=== PATIENT | male | born 1945 | race Caucasian/White ===

== ENCOUNTER → 2020-11-30 | Outpatient (CLI) | payer OTHER ==
--- NOTE | 2020-11-30 13:52 | CT ---
EXAMINATION TYPE: CT abdomen pelvis wo con DATE OF EXAM: 11/30/2020 COMPARISON: None HISTORY: Right sided flank pain with difficulty urinating. CT DLP: 988.4 mGycm Examination of the solid and hollow viscera is limited given the lack of contrast. FINDINGS: LUNG BASES: No evidence for nodule. No evidence for infiltrate. LIVER/GB: The gallbladder is unremarkable. No space-occupying hepatic lesion. PANCREAS: No pancreatic mass identified. No inflammatory process seen. SPLEEN: No evidence for splenomegaly. No intrasplenic lesions seen. ADRENALS: No adrenal nodules identified. No evidence for thickening. KIDNEYS: No evidence for renal mass. No nephrolithiasis. No hydronephrosis. BOWEL: Appendix has a normal appearance. No evidence of bowel obstruction. No inflammatory process. Lymph nodes: No evidence for adenopathy greater than 1 cm. Abdominal aorta: Atheromatous changes seen. No evidence for aneurysm. Genital organs: No significant abnormality. Other: No significant abnormality. IMPRESSION: NO EVIDENCE FOR NEPHROLITHIASIS.
== END | disposition home or self-care (01) ==
LOC: RADCTMAIN 12:54
PROVIDERS: ATTEND Nurse Practitioner Acute Care
DX: R10.9 Unspecified abdominal pain (principal)
CPT/HCPCS: 74176

== ENCOUNTER 2020-12-18 07:19 | Day surgery (SDC) | payer OTHER ==
[2020-12-17 11:23] VITALS: BMI 33.7
[~2020-12-18 07:19] MED LIST: LACTATED RINGERS 1,000 ML IV SCH; LIDOCAINE 1% (10MG/ML) FOR IV START INTRADERMA PRN
[2020-12-18] MEDS ORDERED: LACTATED RINGERS 1,000 ML IV ONE (07:43)
[2020-12-18 07:54] LABS: Glucose,Whole Blood 112 mg/dL (75-99)
[2020-12-18 07:58] VITALS: TEMP 97.8
[2020-12-18] MEDS ORDERED: PROPOFOL 10 MG/ML 20 ML VIAL IV ONE (08:22)
--- NOTE | 2020-12-18 08:52 | P.PCN ---
Date of Procedure: 12/18/20 Description of Procedure: BRIEF HISTORY: Patient is a 75-year-old male presenting for outpatient colonoscopy for diverticulosis, history of colon polyps. The patient's last colonoscopy approximately 5 years ago. He has known history of diverticulosis. He is had polypectomy in the past. He denies any change in bowel habits or family history of colon cancer. PROCEDURE PERFORMED: Colonoscopy with polypectomy . PREOPERATIVE DIAGNOSIS: Diverticulosis, history of colon polyps, last colonoscopy 5 years ago. ESTIMATED BLOOD LOSS: Minimal. IV sedation per Anesthesia. PROCEDURE: After informed consent was obtained, the patient, was brought into the endoscopy unit. IV sedation was administered by Anesthesia under continuous monitoring. Digital rectal examination was normal. Initially the Olympus CF-190 flexible video colonoscope was then inserted in the rectum, gradually advanced into the cecum without any difficulty. Careful examination was performed as the scope was gradually being withdrawn. Ileocecal valve and the appendiceal orifice were visualized and appeared normal. Prep was excellent. Mucosa of the cecum, ascending colon, transverse colon, descending colon, sigmoid colon, and rectum appeared normal, With a few scattered diverticula noted in the left colon. 2 diminutive polyps measuring 1-2 mm in size removed with cold forcep polypectomy from the hepatic flexure and transverse colon. Retroflexion was performed in the rectum and no lesions were seen, Low-grade internal hemorrhoids noted. The patient tolerated the procedure well. IMPRESSION: 2 diminutive polyps removed from the hepatic flexure and transverse colon with cold forcep polypectomy. Moderate left colonic diverticulosis. Internal hemorrhoids. RECOMMENDATIONS: Findings of this examination were discussed with the patient and his family. Okay to resume diet. Okay to resume medications. Await pathology from polypectomy. Recommend repeat colonoscopy in 5 years for history of colon polyps pending pathology from polypectomy and if the patient is medically stable at that time and amenable.
[2020-12-18 08:53] VITALS: RESP 16
[2020-12-18 09:11] VITALS: BP 150/84; PULSE 55
== END 2020-12-18 09:20 | disposition home or self-care (01) ==
LOC: ORWHC2ENDO 07:19
PROVIDERS: ATTEND Internal Medicine
DX: Z12.11 Encounter for screening for malignant neoplasm of colon (principal); Z86.010 Personal history of colon polyps; K57.90 Diverticulosis of intestine, part unspecified, without perforation or abscess without bleeding; G47.33 Obstructive sleep apnea (adult) (pediatric); I10 Essential (primary) hypertension; E11.9 Type 2 diabetes mellitus without complications; G25.0 Essential tremor; K21.9 Gastro-esophageal reflux disease without esophagitis; Z79.899 Other long term (current) drug therapy; Z88.8 Allergy status to other drugs, medicaments and biological substances
CPT/HCPCS: 88305; 45380; J2704

== ENCOUNTER → 2021-02-27 | Outpatient (CLI) | payer OTHER, MEDICARE ==
[2021-02-27 14:50] LABS: HCT 46.2 % (39.0-53.0); MCH 34.7 pg (25.0-35.0); MCHC 34.6 g/dL (31.0-37.0); MCV 100.3 fL (80.0-100.0); Macrocytosis Slight; Mean Platelet Volume 7.6; Platelet Count 267 k/uL (150-450); RDW 13.9 % (11.5-15.5); WBC 7.1 k/uL (3.8-10.6)
[2021-02-27 14:59] LABS: African American GFR (CKD) >90 (>60 ml/min/1.73 sqM); Anion Gap 10 mmol/L; Blood Urea Nitrogen 17 mg/dL (9-20); Carbon Dioxide 26 mmol/L (22-30); Chloride 98 mmol/L (98-107); Non-African American GFR(CKD) 88 (>60 ml/min/1.73 sqM); Potassium 3.9 mmol/L (3.5-5.1); Sodium 134 mmol/L (137-145)
== END | disposition home or self-care (01) ==
LOC: LABPAT 14:32
PROVIDERS: ATTEND Internal Medicine
DX: Z01.812 Encounter for preprocedural laboratory examination (principal); R94.39 Abnormal result of other cardiovascular function study
CPT/HCPCS: 36415; 80051; 82565; 84520; 85027

== ENCOUNTER 2021-03-08 10:40 | Day surgery (SDC) | payer MEDICARE, OTHER ==
[2021-03-05 11:49] VITALS: BMI 34.4
[~2021-03-08 10:40] MED LIST changes: +ALPRAZolam 0.25 MG TAB PO PRN; +ALPRAZolam 0.5 MG TAB PO PRN; +ASPIRIN 325 MG TAB PO STA; +ATORVASTATIN 80 MG TAB PO STA; -LACTATED RINGERS 1,000 ML IV SCH; -LIDOCAINE 1% (10MG/ML) FOR IV START INTRADERMA PRN; +NITROGLYCERIN SL TABS 0.4 MG TAB SUBLINGUAL PRN; +SODIUM CHLORIDE 0.9% 1,000 ML in EMPTY BAG 1 BAG IV ONE
[2021-03-08] MEDS ORDERED: SODIUM CHLORIDE 0.9% 1,000 ML IV ONE (11:15)
[2021-03-08 11:32] VITALS: RESP 16; TEMP 98.3
[2021-03-08] MEDS ORDERED: MIDAZOLAM 2 MG/2 ML VIAL IV ONE (12:37)
[2021-03-08] MEDS ORDERED: fentaNYL (PF) 50 MCG/ML 2 ML AMP IV ONE (12:38)
[2021-03-08] MEDS ORDERED: LIDOCAINE 1% INJ 10MG/ML (20 ML MDV) SQ ONE (12:39)
[2021-03-08] MEDS ORDERED: VERAPAMIL SYRINGE (5 MG/10 ML) INTRAARTER ONE (12:43)
[2021-03-08] MEDS ORDERED: HEPARIN SODIUM 1,000 UN/ML (10ML VL) IV ONE (12:43)
[2021-03-08] MEDS ORDERED: IOPAMIDOL-370 125ML BTL INJ ONE (12:58)
--- NOTE | 2021-03-08 13:05 | P.CARDCATH ---
Description of Procedure: PROCEDURES PERFORMED: Left heart catheterization, bilateral coronary angiography INDICATION: abnormal stress test HISTORY: patient is a pleasant 75-year-old male with history of hypertension, hyperlipidemia, strong family history of coronary artery disease who has been having increased episodes of fatigue and some shortness breath over past year. He denies any specific chest pain or pressure. He did undergo stress test with Lexiscan which showed reversible inferior perfusion defect concerning for ischemia. CONSENT:I have discussed the risks, benefits and alternative therapies for the above-mentioned procedure and for both sedation/analgesia as well as necessary blood product administration, if indicated, as they pertain to this patient. The patient has indicated understanding and acceptance of the risks and procedures discussed. PROCEDURE: After the risks, benefits and alternatives of the above mentioned procedure explained in detail with the patient, informed consent was obtained. Patient was taken to the catheterization lab and prepped and draped in usual fashion. 1% lidocaine was used to anesthetize the right radial artery. A 6- [place]an sheath was placed in the right radial artery using modified Seldinger technique. Left coronary angiography was performed with a 5-[place]an JL 3.5 catheter and right coronary angiography was performed with a 5-[place]ritrean AR2 catheter in various views. A 5-Eritrean FR5 catheter was inserted into the left ventricle and pressure measurements were obtained. The right radial sheath was removed and a TR band was placed with hemostasis achieved. The patient tolerated the procedure well. Patient was transported back to the post catheterization holding area in stable condition. Conscious Sedation: Patient was monitored under the direct supervision of vision of myself for conscious sedation using Versed and fentanyl for a total duration of 17 minutes HEMODYNAMICS: Ao: 132/75 LV: 135/ 4, LVEDP 32 SELECTIVE CORONARY ARTERIOGRAPHY: LEFT MAIN: The left main is a large caliber vessel which bifurcates into the LAD and circumflex. There is no significant stenosis. LEFT ANTERIOR DESCENDING CORONARY ARTERY: LAD is a large caliber vessel which wraps around to the apex. There are mild luminal irregularities of the LAD. LEFT CIRCUMFLEX CORONARY ARTERY: Left circumflex is a moderate caliber vessel without significant stenosis. RIGHT CORONARY ARTERY: The right coronary artery is a large caliber vessel which gives off a PDA and PLV branch and is the dominant vessel. There is mild proximal RCA 20-30% stenosis and otherwise normal. FINAL IMPRESSION: 1. Mild CAD as described above 2. Elevated left sided filling pressures PLAN: 1. Aggressive risk factor modification per most recent ACC/AHA guidelines. 2. Follow-up in the office in 1-2 weeks.
[2021-03-08 16:02] LABS: Glucose,Whole Blood 136 mg/dL (75-99)
[2021-03-08 16:36] VITALS: BP 163/75; PULSE 83
== END 2021-03-08 16:20 | disposition home or self-care (01) ==
LOC: CATHCVL 10:40
PROVIDERS: ATTEND Internal Medicine
DX: I25.10 Atherosclerotic heart disease of native coronary artery without angina pectoris (principal); I10 Essential (primary) hypertension; E11.40 Type 2 diabetes mellitus with diabetic neuropathy, unspecified; E78.5 Hyperlipidemia, unspecified; Z79.899 Other long term (current) drug therapy
CPT/HCPCS: 93458; C1894; J2250; J2001; J3010; J1644; Q9967

== ENCOUNTER 2022-02-06 05:46 | Inpatient (IN) | payer OTHER, MEDICARE ==
[2022-02-06] MEDS ORDERED: SODIUM CHLORIDE 0.9% 1,000 ML IV STA (06:06)
[2022-02-06] MEDS ORDERED: ACETAMINOPHEN TAB 500 MG TAB PO STA (06:07)
--- NOTE | 2022-02-06 06:54 | XR ---
EXAMINATION TYPE: XR chest 2V DATE OF EXAM: 02/06/2022 COMPARISON: 04/05/2014 HISTORY: Weakness TECHNIQUE: 2 views FINDINGS: There is no heart failure. There is some mild linear density at the lung bases. Thoracic ao rta is atheromatous. There are chest leads. No pleural effusion. IMPRESSION: There are some mild atelectasis at the lung bases which is increased compared to old exa m. No heart failure seen.
[2022-02-06 06:56] LABS: Basophils # (A) 0.2 k/uL (0-0.2); Basophils % (A) 2 %; Eosinophils % (A) 1 %; HCT 42.4 % (39.0-53.0); HGB 13.7 gm/dL (13.0-17.5); Lymphocytes % (A) 13 %; MCH 31.8 pg (25.0-35.0); MCHC 32.4 g/dL (31.0-37.0); MCV 98.4 fL (80.0-100.0); Mean Platelet Volume 8.1; Monocytes # (A) 0.7 k/uL (0-1.0); Monocytes % (A) 9 %; Neutrophils # (A) 5.8 k/uL (1.3-7.7); Neutrophils % (A) 74 %; Platelet Count 190 k/uL (150-450); RBC 4.31 m/uL (4.30-5.90); RDW 13.8 % (11.5-15.5); WBC 7.9 k/uL (3.8-10.6)
[2022-02-06 07:10] LABS: ALT 26 U/L (4-49); AST 33 U/L (17-59); African American GFR (CKD) >90 (>60 ml/min/1.73 sqM); Albumin 3.6 g/dL (3.5-5.0); Alkaline Phosphatase 49 U/L (38-126); Anion Gap 7 mmol/L; Blood Urea Nitrogen 13 mg/dL (9-20); Calcium 7.9 mg/dL (8.4-10.2); Carbon Dioxide 23 mmol/L (22-30); Chloride 107 mmol/L (98-107); Glucose 134 mg/dL (74-99); Magnesium 1.7 mg/dL (1.6-2.3); Non-African American GFR(CKD) 85 (>60 ml/min/1.73 sqM); Potassium 3.5 mmol/L (3.5-5.1); Sodium 137 mmol/L (137-145); Total Bilirubin 0.3 mg/dL (0.2-1.3); Total Protein 6.5 g/dL (6.3-8.2)
[2022-02-06] MEDS ORDERED: IBUPROFEN 600 MG TAB PO STA (07:23)
[2022-02-06] MEDS ORDERED: LIDOCAINE VISCOUS 2% 15 ML CUP MUCOUS MEM ONE (07:23)
[2022-02-06] MEDS ORDERED: ALBUTEROL HFA INHALER INHALATION STA (08:07)
[2022-02-06] MEDS ORDERED: DEXAMETHASONE SOD PHOSPHATE 10 MG/ML 1 ML VIAL IVP STA (08:08)
[2022-02-06] MEDS ORDERED: NALOXONE 0.4 MG/ML 1 ML VIAL IV PRN (08:17)
[2022-02-06] MEDS ORDERED: ACETAMINOPHEN TAB 325 MG TAB PO PRN (08:17)
[2022-02-06] MEDS ORDERED: IBUPROFEN 400 MG TAB PO PRN (08:17)
--- NOTE | 2022-02-06 08:17 | ED ---
General Adult HPI - General Chief complaint: Weakness Stated complaint: Weakness, Low O2 Time Seen by Provider: 02/06/22 06:06 Source: patient, RN notes reviewed Mode of arrival: EMS Limitations: no limitations - History of Present Illness Initial comments: 76-year-old male presents emergency Department with chief complaint of dyspnea, weakness, fever. Patient's found to have 103 fever. Patient states he's had cough, sore throat. Patient states she has not felt well the last couple days. Patient states his has very similar symptoms. Patient does have underlying asthma, diabetes. Patient denies any nausea vomiting diarrhea constipation no dysuria. Patient states that he feels very weak, difficulty ambulating. Patient states there is normally self ambulates at home - Related Data Home Medications Medication Instructions Recorded Confirmed Metoprolol Succinate (ER) [Toprol 100 mg PO BID 03/21/15 03/08/21 Xl] Omeprazole [PriLOSEC] 20 mg PO DAILY 03/21/15 03/08/21 Primidone [Mysoline] 50 mg PO BID 03/21/15 03/08/21 amLODIPine BESYLATE [Norvasc] 10 mg PO QAM 03/21/15 03/08/21 glipiZIDE [Glucotrol] 5 mg PO AC-BRKFST 03/21/15 03/08/21 hydroCHLOROthiazide [Hydrodiuril] 50 mg PO DAILY 03/21/15 03/08/21 Doxycycline [Vibramycin] 100 mg PO BID 12/17/20 03/08/21 Gabapentin 300 mg PO BID 12/17/20 12/17/20 Potassium Chloride [Potassium 10 meq PO DAILY 12/17/20 03/08/21 Chloride ER] Tamsulosin [Flomax] 0.4 mg PO DAILY 12/17/20 03/08/21 Vitamin B-12 (Unknown Dose) 1 tab PO DAILY 12/17/20 03/08/21 Aspirin 81 mg PO DAILY 03/08/21 03/08/21 Fexofenadine HCl 180 mg PO DAILY 03/08/21 03/08/21 Finasteride [Proscar] 5 mg PO DAILY 03/08/21 03/08/21 Pregabalin [Lyrica] 25 mg PO BID 03/08/21 03/08/21 Rosuvastatin Calcium [Crestor] 5 mg PO DAILY 03/08/21 03/08/21 hydrALAZINE HCL 50 mg PO AC-BID 03/08/21 03/08/21 Allergies Allergy/AdvReac Type Severity Reaction Status Date / Time grass pollen-perennial rye, Allergy Dyspnea Verified 03/08/21 11:10 standar [grass poll-perennial rye,std] lisinopril Allergy Swelling Verified 03/08/21 11:10 OF THROAT SUTURE-CAT GUT Allergy Swelling Uncoded 03/08/21 11:10 Review of Systems ROS Statement: Those systems with pertinent positive or pertinent negative responses have been documented in the HPI. ROS Other: All systems not noted in ROS Statement are negative. Past Medical History Past Medical History: Diabetes Mellitus, GERD/Reflux, Hypertension, Sleep Apnea/CPAP/BIPAP Additional Past Medical History / Comment(s): Essential Tremors. CPAP use. History of Any Multi-Drug Resistant Organisms: None Reported Additional Past Surgical History / Comment(s): SKIN GRAFT LEFT INDEX FINGER. Past Anesthesia/Blood Transfusion Reactions: No Reported Reaction Past Psychological History: No Psychological Hx Reported Smoking Status: Never smoker - Past Family History Mother Family Medical History: No Reported History General Exam Limitations: no limitations General appearance: alert, in no apparent distress Head exam: Present: atraumatic, normocephalic, normal inspection Eye exam: Present: normal appearance, PERRL, EOMI. Absent: scleral icterus, conjunctival injection, periorbital swelling ENT exam: Present: mucous membranes moist. Absent: normal exam, normal oropharynx Neck exam: Present: normal inspection, full ROM. Absent: tenderness, meningismus, lymphadenopathy Respiratory exam: Present: decreased breath sounds. Absent: normal lung sounds bilaterally, respiratory distress, wheezes, rales, rhonchi, stridor Cardiovascular Exam: Present: regular rate, normal rhythm, normal heart sounds. Absent: systolic murmur, diastolic murmur, rubs, gallop, clicks GI/Abdominal exam: Present: soft, normal bowel sounds. Absent: distended, tenderness, guarding, rebound, rigid Course Vital Signs 02/06/22 02/06/22 02/06/22 05:56 07:17 08:10 Temperature 103.1 F H 99.5 F Pulse Rate 75 73 Respiratory 18 16 Rate Blood Pressure 143/78 148/69 O2 Sat by Pulse 91 L 91 L 87 L Oximetry Medical Decision Making - Medical Decision Making Chest x-ray shows mild atelectasis type changes. Patient does have 103.1 fever patient is COVID-19 positive. Patient is that 90% on room air baseline, walking was very difficulty with pulse ox 86, ambulated with 2 people assisting him. Patient states he feels very weak. - Lab Data Result diagrams: 02/06/22 06:45 02/06/22 06:45 Lab Results 02/06/22 02/06/22 02/06/22 Range/Units 06:45 06:45 06:45 WBC 7.9 (3.8-10.6) k/uL RBC 4.31 (4.30-5.90) m/uL Hgb 13.7 (13.0-17.5) gm/dL Hct 42.4 (39.0-53.0) % MCV 98.4 (80.0-100.0) fL MCH 31.8 (25.0-35.0) pg MCHC 32.4 (31.0-37.0) g/dL RDW 13.8 (11.5-15.5) % Plt Count 190 (150-450) k/uL MPV 8.1 Neutrophils % 74 % Lymphocytes % 13 % Monocytes % 9 % Eosinophils % 1 % Basophils % 2 % Neutrophils # 5.8 (1.3-7.7) k/uL Lymphocytes # 1.0 (1.0-4.8) k/uL Monocytes # 0.7 (0-1.0) k/uL Eosinophils # 0.0 (0-0.7) k/uL Basophils # 0.2 (0-0.2) k/uL Sodium 137 (137-145) mmol/L Potassium 3.5 (3.5-5.1) mmol/L Chloride 107 (98-107) mmol/L Carbon Dioxide 23 (22-30) mmol/L Anion Gap 7 mmol/L BUN 13 (9-20) mg/dL Creatinine 0.85 (0.66-1.25) mg/dL Est GFR (CKD-EPI)AfAm >90 (>60 ml/min/1.73 sqM) Est GFR (CKD-EPI)NonAf 85 (>60 ml/min/1.73 sqM) Glucose 134 H (74-99) mg/dL Plasma Lactic Acid Juan 1.0 (0.7-2.0) mmol/L Calcium 7.9 L (8.4-10.2) mg/dL Magnesium 1.7 (1.6-2.3) mg/dL Total Bilirubin 0.3 (0.2-1.3) mg/dL AST 33 (17-59) U/L ALT 26 (4-49) U/L Alkaline Phosphatase 49 (38-126) U/L Total Protein 6.5 (6.3-8.2) g/dL Albumin 3.6 (3.5-5.0) g/dL Coronavirus (PCR) (Not Detectd) 02/06/22 Range/Units 06:45 WBC (3.8-10.6) k/uL RBC (4.30-5.90) m/uL Hgb (13.0-17.5) gm/dL Hct (39.0-53.0) % MCV (80.0-100.0) fL MCH (25.0-35.0) pg MCHC (31.0-37.0) g/dL RDW (11.5-15.5) % Plt Count (150-450) k/uL MPV Neutrophils % % Lymphocytes % % Monocytes % % Eosinophils % % Basophils % % Neutrophils # (1.3-7.7) k/uL Lymphocytes # (1.0-4.8) k/uL Monocytes # (0-1.0) k/uL Eosinophils # (0-0.7) k/uL Basophils # (0-0.2) k/uL Sodium (137-145) mmol/L Potassium (3.5-5.1) mmol/L Chloride (98-107) mmol/L Carbon Dioxide (22-30) mmol/L Anion Gap mmol/L BUN (9-20) mg/dL Creatinine (0.66-1.25) mg/dL Est GFR (CKD-EPI)AfAm (>60 ml/min/1.73 sqM) Est GFR (CKD-EPI)NonAf (>60 ml/min/1.73 sqM) Glucose (74-99) mg/dL Plasma Lactic Acid Juan (0.7-2.0) mmol/L Calcium (8.4-10.2) mg/dL Magnesium (1.6-2.3) mg/dL Total Bilirubin (0.2-1.3) mg/dL AST (17-59) U/L ALT (4-49) U/L Alkaline Phosphatase (38-126) U/L Total Protein (6.3-8.2) g/dL Albumin (3.5-5.0) g/dL Coronavirus (PCR) Detected A (Not Detectd) Disposition Clinical Impression: Hypoxia, COVID-19, Weakness Disposition: ADMITTED IP TO THIS [facility] Condition: Poor Referrals: Nonstaff,Physician [Primary Care Provider] - 1-2 days Time of Disposition: 08:15
[2022-02-06] MEDS: SODIUM CHLORIDE 0.9% 1,000 ML IV SCH ×2 (10:08→23:38)
--- NOTE | 2022-02-06 10:10 | P.HPIM ---
History of Present Illness Chief Complaint: Shortness of breath Patient is a 76-year-old male with a past medical history significant for essential hypertension, diabetes mellitus [id number], BPH, peripheral neuropathy, hyperlipidemia and mild coronary disease the presents a hospital complaining of shortness of breath. This apparently began a few days ago and has been progressively getting worse. Patient is not vaccinated against COVID- 19. Serology was completed which was positive for COVID-19. Patient was given one-time dose of dexamethasone in the emergency department. During my evaluation he seems to be very lethargic and weak. He is currently on 2-3 L saturating above 90%. Family member present also at bedside but states she is also not vaccinated as well. Education provided at bedside. Past Medical History Past Medical History: Diabetes Mellitus, GERD/Reflux, Hypertension, Sleep Apnea/CPAP/BIPAP Additional Past Medical History / Comment(s): Essential Tremors. CPAP use. History of Any Multi-Drug Resistant Organisms: None Reported Additional Past Surgical History / Comment(s): SKIN GRAFT LEFT INDEX FINGER. Past Anesthesia/Blood Transfusion Reactions: No Reported Reaction Past Psychological History: No Psychological Hx Reported Smoking Status: Never smoker - Past Family History Mother Family Medical History: No Reported History Medications and Allergies Home Medications Medication Instructions Recorded Confirmed Type Metoprolol Succinate (ER) [Toprol 100 mg PO BID 03/21/15 02/06/22 History Xl] Omeprazole [PriLOSEC] 20 mg PO DAILY 03/21/15 02/06/22 History Primidone [Mysoline] 50 mg PO BID 03/21/15 02/06/22 History amLODIPine BESYLATE [Norvasc] 10 mg PO QAM 03/21/15 02/06/22 History glipiZIDE [Glucotrol] 5 mg PO AC-BRKFST 03/21/15 02/06/22 History Doxycycline [Vibramycin] 100 mg PO BID 12/17/20 02/06/22 History Tamsulosin [Flomax] 0.4 mg PO DAILY 12/17/20 02/06/22 History Fexofenadine HCl 180 mg PO DAILY 03/08/21 02/06/22 History Finasteride [Proscar] 5 mg PO DAILY 03/08/21 02/06/22 History Rosuvastatin Calcium [Crestor] 5 mg PO DAILY 03/08/21 02/06/22 History hydrALAZINE HCL 50 mg PO AC-BID 03/08/21 02/06/22 History Cyanocobalamin (Vitamin B-12) 1,000 mcg PO DAILY 02/06/22 02/06/22 History [Vitamin B-12] Furosemide [Lasix] 20 mg PO DAILY 02/06/22 02/06/22 History Potassium Chloride [Klor-Con M20] 20 meq PO DAILY 02/06/22 02/06/22 History Pregabalin [Lyrica] 50 mg PO BID 02/06/22 02/06/22 History Allergies Allergy/AdvReac Type Severity Reaction Status Date / Time grass pollen-perennial rye, Allergy Dyspnea Verified 02/06/22 08:35 standar [grass poll-perennial rye,std] lisinopril Allergy Swelling Verified 02/06/22 08:35 OF THROAT SUTURE-CAT GUT Allergy Swelling Uncoded 02/06/22 08:35 Physical Exam Vitals: Vital Signs Temp Pulse Resp BP Pulse Ox 02/06/22 08:11 93 L 02/06/22 08:10 87 L 02/06/22 07:17 99.5 F 73 16 148/69 91 L 02/06/22 05:56 103.1 F H 75 18 143/78 91 L Intake and Output 02/05/22 02/06/22 02/06/22 22:59 06:59 14:59 Other: Weight 108.862 kg Gen. patient is awake alert oriented 3 very weak appearing Respiratory rhonchi with some minimal wheezing appreciated Abdomen soft, nontender Cardio normal S1/S2 Neuro patient is awake alert oriented 3 Extremity no pitting edema noted Results CBC & Chem 7: 02/06/22 06:45 02/06/22 06:45 Labs: Abnormal Lab Results - Last 24 Hours (Table) 02/06/22 02/06/22 Range/Units 06:45 06:45 Glucose 134 H (74-99) mg/dL Calcium 7.9 L (8.4-10.2) mg/dL Coronavirus (PCR) Detected A (Not Detectd) Assessment and Plan Assessment: Assessment: #1 acute hypoxic respiratory distress secondary to viral infection. #2 COVID-19 pneumonia #3 essential hypertension #4 hyperlipidemia #5 BPH #6 mild coronary artery disease #7 GERD Plan: -Admit to medicine for close monitoring -Aspiration/fall precaution -Education regarding COVID-19 vaccination provided to patient and family bedside -We'll start patient on dexamethasone 6 mg daily -Continue with breathing treatments when necessary to maintain saturations above 90% -Chest x-ray reviewed DVT prophylaxis PT/OT needs 2 person assist to move. Disposition anticipate discharge in the next 24-72 hours pending hospital course.
[2022-02-06] MEDS: ALBUTEROL HFA INHALER INHALATION SCH ×3 (12:39→20:16)
[2022-02-06] MEDS: LIDOCAINE VISCOUS 2% 15 ML CUP MUCOUS MEM PRN (13:34)
[2022-02-06 14:13] LABS: Appearance,Urine Clear (Clear); Bilirubin,Urine Negative (Negative); Blood,Urine Negative (Negative); Color,Urine Yellow; Glucose,Urine (UA) Negative (Negative); Ketones,Urine Trace (Negative); Leukocyte Esterase,Urine Negative (Negative); Nitrite,Urine Negative (Negative); PH, Urine 5.5 (5.0-8.0); Protein,Urine Trace (Negative); Specific Gravity,Urine 1.015 (1.001-1.035); Urobilinogen,Urine <2.0 mg/dL (<2.0)
[2022-02-06 14:32] LABS: C Reactive Protein 1.6 mg/dL (0.00-0.80)
[2022-02-06 16:33] LABS: Glucose,Whole Blood 208 mg/dL (70-110)
[2022-02-06] MEDS: hydrALAZINE HCL 50 MG TAB PO SCH (17:05)
[2022-02-06] MEDS: PREGABALIN 50 MG CAP PO SCH (21:06)
[2022-02-06] MEDS: PRIMIDONE 50 MG TAB PO SCH (21:06)
[2022-02-06] MEDS: METOPROLOL SUCCINATE (ER) 100 MG TAB.ER.24H PO SCH (21:15)
[2022-02-06 21:19] LABS: Glucose,Whole Blood 182 mg/dL (70-110)
[2022-02-07] MEDS: LIDOCAINE VISCOUS 2% 15 ML CUP MUCOUS MEM PRN (03:08)
[2022-02-07 07:09] LABS: Glucose,Whole Blood 133 mg/dL (70-110)
--- NOTE | 2022-02-07 07:27 | XR ---
EXAMINATION TYPE: XR chest 1V portable DATE OF EXAM: 02/07/2022 COMPARISON: 02/06/2022 INDICATION: Short of breath TECHNIQUE: Single frontal view of the chest is obtained. FINDINGS: The heart size is mildly prominent. The pulmonary vasculature is normal. The lungs are clear. IMPRESSION: 1. Mild cardiomegaly.
[2022-02-07] MEDS: ALBUTEROL HFA INHALER INHALATION SCH ×4 (07:40→19:15)
[2022-02-07] MEDS: FUROSEMIDE 20 MG TAB PO SCH (09:02)
[2022-02-07] MEDS: TAMSULOSIN 0.4 MG CAP.ER.24H PO SCH (09:02)
[2022-02-07] MEDS: PANTOPRAZOLE 40 MG TABLET PO SCH (09:03)
[2022-02-07] MEDS: ATORVASTATIN 10 MG TAB PO SCH (09:03)
[2022-02-07] MEDS: dexAMETHasone 2 MG TAB PO SCH (09:03)
[2022-02-07] MEDS: FINASTERIDE 5 MG TAB PO SCH (09:03)
[2022-02-07] MEDS: PRIMIDONE 50 MG TAB PO SCH ×2 (09:03→21:16)
[2022-02-07] MEDS: hydrALAZINE HCL 50 MG TAB PO SCH ×2 (09:03→15:32)
[2022-02-07] MEDS: PREGABALIN 50 MG CAP PO SCH ×2 (09:03→21:16)
[2022-02-07] MEDS: METOPROLOL SUCCINATE (ER) 100 MG TAB.ER.24H PO SCH ×2 (09:03→21:16)
[2022-02-07] MEDS: amLODIPine 10 MG TAB PO SCH (09:03)
[2022-02-07 09:13] LABS: Basophils # (A) 0 X 10*3/uL (0.00-0.10); Basophils % (A) 0 %; Eosinophils # (A) 0 X 10*3/uL (0.04-0.35); Eosinophils % (A) 0 %; HCT 41.2 % (39.6-50.0); HGB 13.2 g/dL (13.0-17.0); Immature Grans, Automated 0.3 %; Lymphocytes # (A) 1.73 X 10*3/uL (0.90-5.00); Lymphocytes % (A) 22.9 %; MCH 31.1 pg (27.0-32.0); MCV 97.2 fL (80.0-97.0); Monocytes # (A) 1.14 X 10*3/uL (0.20-1.00); Monocytes % (A) 15.1 %; NRBC Per 100 WBC 0 /100 WBCS (0.0-0.0); Neutrophils # (A) 4.66 X 10*3/uL (1.80-7.70); Neutrophils % (A) 61.7 %; Platelet Count 186 X 10*3/uL (140-440); RBC 4.24 X 10*6/uL (4.40-5.60); RDW 14.8 % (11.5-14.5); WBC 7.55 X 10*3/uL (4.50-10.00)
[2022-02-07 10:17] LABS: African American GFR (CKD) 101.3 (60.0-200.0); Anion Gap 10.7 mmol/L (10.00-18.00); BUN/Creat Ratio 13.63 Ratio (12.00-20.00); Blood Urea Nitrogen 10.9 mg/dL (9.0-27.0); Calcium 8.3 mg/dL (8.7-10.3); Carbon Dioxide 22.3 mmol/L (20.0-27.5); Non-African American GFR(CKD) 87.4 (60.0-200.0); Potassium 3.3 mmol/L (3.5-5.5)
[2022-02-07] MEDS ORDERED: BENZOCAINE/MENTHOL LOZENG 1 EACH LOZENGE MUCOUS MEM PRN (11:08)
[2022-02-07] MEDS ORDERED: POTASSIUM CHLORIDE ER 20 MEQ TAB.ER PO STA (11:10)
--- NOTE | 2022-02-07 11:14 | P.PN ---
Subjective Progress Note Date: 02/07/22 Patient is a 76-year-old male with essential hypertension, kfi-xwqrafy-vskeydgcc diabetes mellitus, BPH, peripheral neuropathy who presented to the hospital with shortness of breath. He was subsequently diagnosed with COVID-19. In the ER he was satting 90% on 2-3 L nasal cannula. He is admitted and was started on dexamethasone. Patient seen and examined at bedside. He continues to complain of severe sore throat pain. He states his breath felt slightly shallow this morning but otherwise feels good. He denies any nausea or vomiting. States he can only tolerate hot liquids are not cold liquids. States he has been eating and drinking well. General: Nontoxic, no distress, appears at stated age Derm: warm, dry Head: atraumatic, normocephalic, symmetric Eyes: EOMI, no lid lag, anicteric sclera Mouth: no lip lesion, mucus membranes moist Cardiovascular: S1S2 reg, no murmur, positive posterior tibial pulse bilateral, Lungs: CTA bilateral, no rhonchi, no rales , no accessory muscle use Abdominal: soft, nontender to palpation, no guarding, no appreciable organomegaly Ext: no gross muscle atrophy, no edema, no contractures Neuro: CN II-XI grossly intact, no focal neuro deficits Psych: Alert, oriented, appropriate affect Assessment/plan: COVID 19 Acute Hypoxic Respiratory failure - dexamethasone - pulm hygiene - Pulmonary recommendations - add cepacol for sore throat - add mucinex for cough HTN, controlled - continue current medications Chronic: BPH HLD GERD mild CAD Likely home in AM DVT prophylaxis: add lovenox Active Medications Generic Name Dose Route Start Last Admin Trade Name Freq PRN Reason Stop Dose Admin Acetaminophen 650 mg 02/06/22 08:17 02/06/22 21:06 Acetaminophen Tab 325 Mg Tab PO 650 mg Q6HR PRN Administration Mild Pain or Fever > 100.5 Albuterol Sulfate 2 puff 02/06/22 12:00 02/07/22 07:40 Albuterol Hfa Inhaler INHALATION 2 puff RT-QID RAFAL Administration Amlodipine Besylate 10 mg 02/07/22 09:00 02/07/22 09:03 Amlodipine 10 Mg Tab PO 10 mg QAM RAFAL Administration Atorvastatin Calcium 10 mg 02/07/22 09:00 02/07/22 09:03 Atorvastatin 10 Mg Tab PO 10 mg DAILY RAFAL Administration Benzocaine/Menthol 1 each 02/07/22 11:08 Benzocaine/Menthol Lozeng 1 Each Lozenge MUCOUS MEM Q4HR PRN Sore Throat Dexamethasone 6 mg 02/07/22 09:00 02/07/22 09:03 Dexamethasone 2 Mg Tab PO 6 mg DAILY RAFAL Administration Finasteride 5 mg 02/07/22 09:00 02/07/22 09:03 Finasteride 5 Mg Tab PO 5 mg DAILY RAFAL Administration Furosemide 20 mg 02/07/22 09:00 02/07/22 09:02 Furosemide 20 Mg Tab PO 20 mg DAILY RAFAL Administration Guaifenesin 600 mg 02/07/22 11:15 Guaifenesin 600 Mg Tablet.Er PO Q12HR RAFAL Hydralazine HCl 50 mg 02/06/22 17:30 02/07/22 09:03 Hydralazine Hcl 50 Mg Tab PO 50 mg AC-BID RAFAL Administration Sodium Chloride 1,000 mls @ 75 mls/hr 02/06/22 08:30 02/06/22 23:38 Saline 0.9% IV 75 mls/hr .[id number] RAFAL Administration Ibuprofen 400 mg 02/06/22 08:17 Ibuprofen 400 Mg Tab PO Q6HR PRN Mild Pain or Fever > 100.5 Lidocaine HCl 5 ml 02/06/22 13:21 02/07/22 03:08 Lidocaine Viscous 2% 15 Ml Cup MUCOUS MEM 5 ml Q4HR PRN Administration pain Metoprolol Succinate 100 mg 02/06/22 21:00 02/07/22 09:03 Metoprolol Succinate (Er) 100 Mg Tab.Er.24h PO 100 mg BID RAFAL Administration Naloxone HCl 0.2 mg 02/06/22 08:17 Naloxone 0.4 Mg/Ml 1 Ml Vial IV Q2M PRN Opioid Reversal Pantoprazole Sodium 40 mg 02/07/22 07:30 02/07/22 09:03 Pantoprazole 40 Mg Tablet PO 40 mg AC-BRKFST RAFAL Administration Pregabalin 50 mg 02/06/22 21:00 02/07/22 09:03 Pregabalin 50 Mg Cap PO 50 mg BID RAFAL Administration Primidone 50 mg 02/06/22 21:00 02/07/22 09:03 Primidone 50 Mg Tab PO 50 mg BID RAFAL Administration Tamsulosin HCl 0.4 mg 02/07/22 09:00 02/07/22 09:02 Tamsulosin 0.4 Mg Cap.Er.24h PO 0.4 mg DAILY RAFAL Administration Objective - Vital Signs Vital signs: Vital Signs Temp 99.0 F 02/07/22 08:00 Pulse 60 02/07/22 08:00 Resp 18 02/06/22 19:28 BP 155/78 02/07/22 08:00 Pulse Ox 93 L 02/07/22 08:00 FiO2 Intake & Output 02/06/22 02/07/22 02/07/22 18:59 06:59 18:59 Output Total 1500 Balance -1500 Weight 108.862 kg Output: Urine 1500 Other: # Voids 500 - Labs CBC & Chem 7: 02/07/22 03:40 02/07/22 03:40 Labs: Abnormal Lab Results - Last 24 Hours (Table) 02/06/22 02/06/22 02/06/22 Range/Units 06:45 13:42 16:31 RBC (4.40-5.60) X 10*6/uL MCV (80.0-97.0) fL RDW (11.5-14.5) % Monocytes # (0.20-1.00) X 10*3/uL Eosinophils # (0.04-0.35) X 10*3/uL Potassium (3.5-5.5) mmol/L Glucose (70-110) mg/dL POC Glucose (mg/dL) 208 H (70-110) mg/dL Calcium (8.7-10.3) mg/dL C-Reactive Protein 1.60 H (0.00-0.80) mg/dL Urine Protein Trace H (Negative) Urine Ketones Trace H (Negative) 02/06/22 02/07/22 02/07/22 Range/Units 21:08 03:40 03:40 RBC 4.24 L (4.40-5.60) X 10*6/uL MCV 97.2 H (80.0-97.0) fL RDW 14.8 H (11.5-14.5) % Monocytes # 1.14 H (0.20-1.00) X 10*3/uL Eosinophils # 0 L (0.04-0.35) X 10*3/uL Potassium 3.3 L (3.5-5.5) mmol/L Glucose 147 H (70-110) mg/dL POC Glucose (mg/dL) 182 H (70-110) mg/dL Calcium 8.3 L (8.7-10.3) mg/dL C-Reactive Protein (0.00-0.80) mg/dL Urine Protein (Negative) Urine Ketones (Negative) 02/07/22 Range/Units 07:07 RBC (4.40-5.60) X 10*6/uL MCV (80.0-97.0) fL RDW (11.5-14.5) % Monocytes # (0.20-1.00) X 10*3/uL Eosinophils # (0.04-0.35) X 10*3/uL Potassium (3.5-5.5) mmol/L Glucose (70-110) mg/dL POC Glucose (mg/dL) 133 H (70-110) mg/dL Calcium (8.7-10.3) mg/dL C-Reactive Protein (0.00-0.80) mg/dL Urine Protein (Negative) Urine Ketones (Negative)
[2022-02-07 11:36] LABS: Glucose,Whole Blood 136 mg/dL (70-110)
[2022-02-07] MEDS: ENOXAPARIN 40 MG/0.4 ML SYRINGE SQ SCH (11:45)
[2022-02-07] MEDS: guaiFENesin 600 MG TABLET.ER PO SCH ×2 (11:45→21:16)
[2022-02-07] MEDS: SODIUM CHLORIDE 0.9% 1,000 ML IV SCH (11:47)
--- NOTE | 2022-02-07 12:21 | P.CNPUL ---
History of Present Illness Consult date: 02/07/22 Requesting physician: Perfecto Mcfarland Reason for consult: hypoxemia, other (COVID-19 infection) Chief complaint: Sore throat, fever, weakness History of present illness: This is a 76-year-old male patient with a known history of hypertension, hyperlipidemia, diabetes mellitus, gastroesophageal reflux disease, essential tremors, obstructive sleep apnea utilizing CPAP. He presented here to the [facility] room yesterday with complaints of sore throat, fever, generalized weakness. His had similar symptoms. He was found to be positive for COVID-19 infection. He had some hypoxemia with O2 saturation the low 90s. We are consulted for the same. He is seen today on the regular medical floor. Currently sitting up in bed. Awake and alert in no acute distress. Maintaining O2 saturations in the 90s on 4 L/m per nasal cannula. White count 7.5. Hemoglobin 13.2. Lymphocytes 1.73. Sodium 140. Potassium 3.3. Bicarb 22. BUN 10. Creatinine 0.8. Jane virus by PCR positive. Chest x-ray reveals no acute pulmonary process. Mild cardiomegaly. He's been initiated on Decadron, Lovenox, albuterol. Review of Systems REVIEW OF SYSTEMS: CONSTITUTIONAL: Denies any recent significant weight loss or weight gain. EYES: Denies change in vision. EARS, NOSE, MOUTH, THROAT: Positive for sore throat. CARDIOVASCULAR: Denies chest pain, palpitations or syncopal episodes. RESPIRATORY: Positive for shortness of breath, cough, congestion no hemoptysis. GASTROINTESTINAL: Denies change in appetite, denies abdominal pain GENITOURINARY: Denies hematuria, denies infections. MUSKULOSKELETAL: Denies pain, denies swelling. INTEGUMENTARY: Denies rash, denies eczema. NEUROLOGICAL: Denies recent memory loss, no recent seizure activity. PSYCHIATRIC: Denies anxiety, denies depression. HEMATOLOGIC/LYMPHATIC: Denies anemia, denies enlarged lymph nodes. Past Medical History Past Medical History: Diabetes Mellitus, GERD/Reflux, Hypertension, Sleep Apnea/CPAP/BIPAP Additional Past Medical History / Comment(s): Essential Tremors. CPAP use. History of Any Multi-Drug Resistant Organisms: None Reported Additional Past Surgical History / Comment(s): SKIN GRAFT LEFT INDEX FINGER. Past Anesthesia/Blood Transfusion Reactions: No Reported Reaction Past Psychological History: No Psychological Hx Reported Smoking Status: Never smoker Past Alcohol Use History: Occasional Past Drug Use History: None Reported - Past Family History Mother Family Medical History: No Reported History Medications and Allergies Home Medications Medication Instructions Recorded Confirmed Type Metoprolol Succinate (ER) [Toprol 100 mg PO BID 03/21/15 02/06/22 History Xl] Omeprazole [PriLOSEC] 20 mg PO DAILY 03/21/15 02/06/22 History Primidone [Mysoline] 50 mg PO BID 03/21/15 02/06/22 History amLODIPine BESYLATE [Norvasc] 10 mg PO QAM 03/21/15 02/06/22 History glipiZIDE [Glucotrol] 5 mg PO AC-BRKFST 03/21/15 02/06/22 History Doxycycline [Vibramycin] 100 mg PO BID 12/17/20 02/06/22 History Tamsulosin [Flomax] 0.4 mg PO DAILY 12/17/20 02/06/22 History Fexofenadine HCl 180 mg PO DAILY 03/08/21 02/06/22 History Finasteride [Proscar] 5 mg PO DAILY 03/08/21 02/06/22 History Rosuvastatin Calcium [Crestor] 5 mg PO DAILY 03/08/21 02/06/22 History hydrALAZINE HCL 50 mg PO AC-BID 03/08/21 02/06/22 History Cyanocobalamin (Vitamin B-12) 1,000 mcg PO DAILY 02/06/22 02/06/22 History [Vitamin B-12] Furosemide [Lasix] 20 mg PO DAILY 02/06/22 02/06/22 History Potassium Chloride [Klor-Con M20] 20 meq PO DAILY 02/06/22 02/06/22 History Pregabalin [Lyrica] 50 mg PO BID 02/06/22 02/06/22 History Allergies Allergy/AdvReac Type Severity Reaction Status Date / Time grass pollen-perennial rye, Allergy Dyspnea Verified 02/06/22 08:35 standar [grass poll-perennial rye,std] lisinopril Allergy Swelling Verified 02/06/22 08:35 OF THROAT SUTURE-CAT GUT Allergy Swelling Uncoded 02/06/22 08:35 Physical Exam Vitals: Vital Signs Temp Pulse Pulse Resp BP BP Pulse Ox 02/07/22 08:00 99.0 F 60 155/78 93 L 02/06/22 19:28 98.3 F 70 18 160/78 92 L 02/06/22 14:00 97.9 F 74 147/73 89 L 02/06/22 13:38 97.7 F 69 18 138/64 94 L Intake and Output 02/06/22 02/07/22 02/07/22 22:59 06:59 14:59 Output Total 1500 Balance -1500 Output: Urine 1500 Other: # Voids 500 Weight 108.862 kg GENERAL EXAM: Alert, 76-year-old male patient, sitting up in bed, O2 at 4 L per nasal cannula, comfortable in no apparent distress. HEAD: Normocephalic. EYES: Normal reaction of pupils, equal size. NOSE: Clear with pink turbinates. THROAT: No erythema or exudates. NECK: No masses, no JVD. CHEST: No chest wall deformity. LUNGS: Equal air entry with no crackles, wheeze, rhonchi or dullness. CVS: S1 and S2 normal with no audible murmur, regular rhythm. ABDOMEN: No hepatosplenomegaly, normal bowel sounds, no guarding or rigidity. SPINE: No scoliosis or deformity SKIN: No rashes CENTRAL NERVOUS SYSTEM: No focal deficits, tone is normal in all 4 extremities. EXTREMITIES: There is no peripheral edema. No clubbing, no cyanosis. Peripheral pulses are intact. Results - Laboratory Findings CBC and BMP: 02/07/22 03:40 02/07/22 03:40 Abnormal lab findings: Abnormal Labs 02/06/22 02/06/22 02/06/22 06:45 06:45 06:45 RBC MCV RDW Monocytes # Eosinophils # Potassium Glucose 134 H POC Glucose (mg/dL) Calcium 7.9 L C-Reactive Protein 1.60 H Urine Protein Urine Ketones Coronavirus (PCR) Detected A 02/06/22 02/06/22 02/06/22 13:42 16:31 21:08 RBC MCV RDW Monocytes # Eosinophils # Potassium Glucose POC Glucose (mg/dL) 208 H 182 H Calcium C-Reactive Protein Urine Protein Trace H Urine Ketones Trace H Coronavirus (PCR) 02/07/22 02/07/22 02/07/22 03:40 03:40 07:07 RBC 4.24 L MCV 97.2 H RDW 14.8 H Monocytes # 1.14 H Eosinophils # 0 L Potassium 3.3 L Glucose 147 H POC Glucose (mg/dL) 133 H Calcium 8.3 L C-Reactive Protein Urine Protein Urine Ketones Coronavirus (PCR) 02/07/22 11:34 RBC MCV RDW Monocytes # Eosinophils # Potassium Glucose POC Glucose (mg/dL) 136 H Calcium C-Reactive Protein Urine Protein Urine Ketones Coronavirus (PCR) - Diagnostic Findings Chest x-ray: image reviewed Assessment and Plan Assessment: 1 Acute COVID-19 infection. No evidence of pneumonia. 2 Febrile illness secondary to above 3 Acute hypoxemic respiratory failure secondary to above 4 Obstructive sleep apnea maintained on CPAP 5 Hypertension 6 Hyperlipidemia 7 Diabetes mellitus 8 BPH 9 GERD Plan: The patient was seen and evaluated Chest x-ray, labs and medications reviewed Continued Decadron, Lovenox Titrate down the FiO2 as tolerated We'll continue to follow and make further recommendations based on his clinical status I have personally seen and examined the patient, performed the documentation and the assessment and plan as written. Number of minutes spent on the visit: 20.
[2022-02-07 16:58] LABS: Glucose,Whole Blood 214 mg/dL (70-110)
[2022-02-07 20:35] LABS: Glucose,Whole Blood 248 mg/dL (70-110)
[2022-02-08] MEDS: SODIUM CHLORIDE 0.9% 1,000 ML IV SCH ×2 (03:14→15:39)
[2022-02-08 07:02] LABS: Glucose,Whole Blood 109 mg/dL (70-110)
[2022-02-08] MEDS: ALBUTEROL HFA INHALER INHALATION SCH ×3 (07:13→15:03)
[2022-02-08 09:30] VITALS: BP 144/68; TEMP 97.7
[2022-02-08] MEDS: ATORVASTATIN 10 MG TAB PO SCH (09:32)
[2022-02-08] MEDS: ENOXAPARIN 40 MG/0.4 ML SYRINGE SQ SCH (09:32)
[2022-02-08] MEDS: dexAMETHasone 2 MG TAB PO SCH (09:32)
[2022-02-08] MEDS: hydrALAZINE HCL 50 MG TAB PO SCH (09:32)
[2022-02-08] MEDS: amLODIPine 10 MG TAB PO SCH (09:33)
[2022-02-08] MEDS: METOPROLOL SUCCINATE (ER) 100 MG TAB.ER.24H PO SCH (09:33)
[2022-02-08] MEDS: PANTOPRAZOLE 40 MG TABLET PO SCH (09:33)
[2022-02-08] MEDS: TAMSULOSIN 0.4 MG CAP.ER.24H PO SCH (09:33)
[2022-02-08] MEDS: guaiFENesin 600 MG TABLET.ER PO SCH (09:33)
[2022-02-08] MEDS: FUROSEMIDE 20 MG TAB PO SCH (09:33)
[2022-02-08] MEDS: PRIMIDONE 50 MG TAB PO SCH (09:33)
[2022-02-08] MEDS: PREGABALIN 50 MG CAP PO SCH (09:33)
[2022-02-08] MEDS: FINASTERIDE 5 MG TAB PO SCH (09:33)
[2022-02-08 10:23] VITALS: RESP 17
[2022-02-08 12:06] LABS: Glucose,Whole Blood 218 mg/dL (70-110)
--- NOTE | 2022-02-08 12:52 | P.PN ---
Subjective Progress Note Date: 02/08/22 Principal diagnosis: COVID-19 infection This is a 76-year-old male patient with a known history of hypertension, hyperlipidemia, diabetes mellitus, gastroesophageal reflux disease, essential tremors, obstructive sleep apnea utilizing CPAP. He presented here to the emergency room yesterday with complaints of sore throat, fever, generalized weakness. His had similar symptoms. He was found to be positive for COVID-19 infection. He had some hypoxemia with O2 saturation the low 90s. We are consulted for the same. He is seen today on the regular medical floor. Currently sitting up in bed. Awake and alert in no acute distress. Maintaining O2 saturations in the 90s on 4 L/m per nasal cannula. White count 7.5. Hemoglobin 13.2. Lymphocytes 1.73. Sodium 140. Potassium 3.3. Bicarb 22. BUN 10. Creatinine 0.8. Jane virus by PCR positive. Chest x-ray reveals no acute pulmonary process. Mild cardiomegaly. He's been initiated on Decadron, Lovenox, albuterol. On 02/08/2022 patient seen in follow-up on medical surgical floor. He is sitting up in the recliner, and does not appear to be in any acute distress, room air pulse ox is 90%. Breathing comfortably, no worsening dyspnea or cough. Afebrile, vital signs have been stable, does get short of breath with exertion but no acute distress noted, no complaints of chest discomfort. Remains on IV fluids at 75 ML per hour, Decadron 6 mg daily, inhaled albuterol on as needed basis, he has had no acute events overnight. Remains on Mucinex. His ferritin was within normal limits, no LDH was obtained, CRP is 1.6, urinalysis showed no evidence of urinary tract infection, his d-dimer was elevated to 1.25, patient is on prophylactic dose Lovenox currently. Objective - Vital Signs Vital signs: Vital Signs Temp 97.7 F 02/08/22 09:27 Pulse 64 02/08/22 09:27 Resp 17 02/08/22 10:23 BP 144/68 02/08/22 09:27 Pulse Ox 90 L 02/08/22 10:23 FiO2 Intake & Output 02/07/22 02/08/22 02/08/22 18:59 06:59 18:59 Output Total 1000 Balance -1000 Output: Urine 1000 - Exam GENERAL EXAM: Alert, pleasant, 76-year-old white male on room air with pulse ox of 90% comfortable in no apparent distress. HEAD: Normocephalic/atraumatic. EYES: Normal reaction of pupils, equal size. Conjunctiva pink, sclera white. NOSE: Clear with pink turbinates. THROAT: No erythema or exudates. NECK: No masses, no JVD, no thyroid enlargement, no adenopathy. CHEST: No chest wall deformity. Symmetrical expansion. LUNGS: Equal air entry with no crackles, wheeze, rhonchi or dullness. CVS: Regular rate and rhythm, normal S1 and S2, no gallops, no murmurs, no rubs ABDOMEN: Soft, nontender. No hepatosplenomegaly, normal bowel sounds, no guarding or rigidity. EXTREMITIES: No clubbing, no edema, no cyanosis, 2+ pulses and upper and lower extremities. MUSCULOSKELETAL: Muscle strength and tone normal. SPINE: No scoliosis or deformity SKIN: No rashes CENTRAL NERVOUS SYSTEM: Alert and oriented -3. No focal deficits, tone is normal in all 4 extremities. PSYCHIATRIC: Alert and oriented -3. Appropriate affect. Intact judgment and insight. - Labs CBC & Chem 7: 02/07/22 03:40 02/07/22 03:40 Labs: Abnormal Lab Results - Last 24 Hours (Table) 02/07/22 02/07/22 02/07/22 Range/Units 13:32 16:57 20:33 D-Dimer 1.25 H (<0.60) mg/L FEU POC Glucose (mg/dL) 214 H 248 H (70-110) mg/dL 02/08/22 Range/Units 12:05 D-Dimer (<0.60) mg/L FEU POC Glucose (mg/dL) 218 H (70-110) mg/dL Assessment and Plan Plan: Assessment: #1. Acute hypoxic respiratory failure related to acute COVID-19 infection, chest x-ray showing no evidence of pneumonia #2. Febrile illness related to the above, improving #3. Elevated d-dimer, rule out possibility of PE or DVT, CTA chest and lower extremity Dopplers are pending #4. Obstructive sleep apnea maintained on CPAP #5. Hypertension #6. Hyperlipidemia #7. Diabetes mellitus type 2 #8. BPH #9. GERD/reflux Plan: Continue current medical treatment Continue prophylactic Lovenox and Decadron Clinically patient denies any worsening dyspnea, his been afebrile, vitals have been stable However his O2 sats are a bit marginal, he may require home oxygen before going home Obtain CTA chest and alert extremity Dopplers to rule out possibility of PE and DVT If both are negative, patient may be discharged home today from pulmonary perspective to finish total of 10 day course of Decadron Home oxygen assessment with ambulation Outpatient follow-up with Dr. Morlaes any office in 7-10 days I have personally seen and examined the patient, performed the documentation and the assessment and plan as written. Number of minutes spent on the visit: [10] Time with Patient: Less than 30
--- NOTE | 2022-02-08 14:15 | CT ---
CT CHEST FOR PULMONARY EMBOLISM. EXAMINATION TYPE: CT chest angio for PE DATE OF EXAM: 02/08/2022 INDICATION: Elevated d-dimer, shortness of breath, covid positive. CT DLP: 734.2 mGycm, Automated exposure control for dose reduction was used. CONTRAST: Patient injected with 87ml mL of Isovue 370. COMPARISON: None TECHNIQUE: CT of the chest is performed on a spiral scan at 2 mm thick sections. Study is performed with intravenous contrast timed for evaluation for pulmonary embolism. This will limit additional po rtions of the evaluation. 3-D MIP images reconstructed by the technologist are reviewed on the compu ter in the coronal and sagittal planes. FINDINGS: No persistent filling defects are evident to suggest an acute pulmonary embolism. No mediastinal or hilar adenopathy enlarged by CT criteria is evident. The ascending aorta diameter at the level of the main pulmonary artery is 3.7 cm. The main pulmonary artery diameter at the bifur cation is 3.6 cm. Paraseptal emphysematous changes are in the upper lung rangel. Consolidations or streak atelectasis w ithin the dependent posterior lateral lung bases. Follow-up is recommended. Underlying masses are not excluded. Portion of the thyroid within the [id number] is unremarkable. Limited CT section through the upper abdomen are unremarkable. IMPRESSIONS: 1. No acute pulmonary embolism. 2. Posterior lateral straight consolidations. Correlate for atelectasis or pneumonia. Underlying mass es are not excluded. Follow-up to clearing is recommended.
--- NOTE | 2022-02-08 14:22 | US ---
EXAMINATION TYPE: US venous doppler duplex LE DATE OF EXAM: 02/08/2022 10:58 AM COMPARISON: NONE CLINICAL HISTORY: elevated d-dimer. SIDE PERFORMED: Bilateral TECHNIQUE: The lower extremity deep venous system is examined utilizing real time linear array sonog xochitl with graded compression, doppler sonography and color-flow sonography. VESSELS IMAGED: Common Femoral Vein Deep Femoral Vein Greater Saphenous Vein * Femoral Vein Popliteal Vein Small Saphenous Vein * Proximal Calf Veins (* superficial vessels) Right Leg: Negative for DVT Left Leg: Negative for DVT IMPRESSION: 1. Bilateral lower extremity ultrasound negative for deep venous thrombosis.
--- NOTE | 2022-02-08 14:28 | P.DS ---
Providers Date of admission: 02/06/22 08:16 Expected date of discharge: 02/08/22 Attending physician: Perfecto Mcfarland MD Consults: 02/06/22 08:17 Consult Physician Urgent Consulting Provider: Helga Morales Consult Reason/Comments: Hypoxia, COVID-19 Do you want consulting provider notified?: Yes Primary care physician: Physician Nonstaff Hospital Course: COVID 19 Acute Hypoxic Respiratory failure HTN, controlled BPH HLD GERD mild CAD Patient is a 76-year-old male with essential hypertension, [id number] diabetes mellitus, BPH, peripheral neuropathy who presented to the hospital with shortness of breath. He was subsequently diagnosed with COVID-19. In the ER he was satting 90% on 2-3 L nasal cannula. He is admitted and was started on dexamethasone. Patient was seen and evaluated by pulmonology and cleared to go home with 10 day course of dexamethasone. His CTA was negative for pulmonary embolism. His larger meal ultrasound was negative for DVT. He'll follow-up with PCP, pulmonology. I advised that he get vaccinated in 3 months. I spent 31 minutes coordinating this discharge Gen: awake, alert HEENT: normocephalic, atraumatic, good hearing acuity, moist mucous membranes Resp: good air exchange, breathing comfortably with no accessory muscle use CVS: good distal perfusion x 4, GI: soft, NTTP, ND : no SPT, no CVAT, pritchard catheter not present MSK: no pitting edema, no clubbing Neuro: non-focal, moving all extremities Psych: cooperative, euthymic mood Patient Condition at Discharge: Good Plan - Discharge Summary Discharge Rx Participant: Yes New Discharge Prescriptions: New Acetaminophen Tab [Tylenol] 650 mg PO Q6HR PRN tab PRN Reason: Mild Pain Or Fever > 100.5 Albuterol Inhaler [Ventolin Hfa Inhaler] 2 puff INHALATION RT-QID PRN #1 each PRN Reason: Shortness Of Breath dexAMETHasone ORAL [Hexadrol] 6 mg PO DAILY #24 tablet Continue Omeprazole [PriLOSEC] 20 mg PO DAILY Metoprolol Succinate (ER) [Toprol XL] 100 mg PO BID Primidone [Mysoline] 50 mg PO BID amLODIPine BESYLATE [Norvasc] 10 mg PO QAM glipiZIDE [Glucotrol] 5 mg PO AC-BRKFST hydrALAZINE HCL 50 mg PO AC-BID Rosuvastatin Calcium [Crestor] 5 mg PO DAILY Fexofenadine HCl 180 mg PO DAILY Potassium Chloride [Klor-Con M20] 20 meq PO DAILY Tamsulosin [Flomax] 0.4 mg PO DAILY Finasteride [Proscar] 5 mg PO DAILY Pregabalin [Lyrica] 50 mg PO BID Furosemide [Lasix] 20 mg PO DAILY Cyanocobalamin (Vitamin B-12) [Vitamin B-12] 1,000 mcg PO DAILY Discontinued Doxycycline [Vibramycin] 100 mg PO BID Discharge Medication List Metoprolol Succinate (ER) [Toprol XL] 100 mg PO BID 03/21/15 [History] Omeprazole [PriLOSEC] 20 mg PO DAILY 03/21/15 [History] Primidone [Mysoline] 50 mg PO BID 03/21/15 [History] amLODIPine BESYLATE [Norvasc] 10 mg PO QAM 03/21/15 [History] glipiZIDE [Glucotrol] 5 mg PO AC-BRKFST 03/21/15 [History] Tamsulosin [Flomax] 0.4 mg PO DAILY 12/17/20 [History] Fexofenadine HCl 180 mg PO DAILY 03/08/21 [History] Finasteride [Proscar] 5 mg PO DAILY 03/08/21 [History] Rosuvastatin Calcium [Crestor] 5 mg PO DAILY 03/08/21 [History] hydrALAZINE HCL 50 mg PO AC-BID 03/08/21 [History] Cyanocobalamin (Vitamin B-12) [Vitamin B-12] 1,000 mcg PO DAILY 02/06/22 [History] Furosemide [Lasix] 20 mg PO DAILY 02/06/22 [History] Potassium Chloride [Klor-Con M20] 20 meq PO DAILY 02/06/22 [History] Pregabalin [Lyrica] 50 mg PO BID 02/06/22 [History] Acetaminophen Tab [Tylenol] 650 mg PO Q6HR PRN tab 02/08/22 [Rx] Albuterol Inhaler [Ventolin Hfa Inhaler] 2 puff INHALATION RT-QID PRN #1 each 02/08/22 [Rx] dexAMETHasone ORAL [Hexadrol] 6 mg PO DAILY #24 tablet 07/30/22 [Rx] Follow up Appointment(s)/Referral(s): Nonstaff,Physician [Primary Care Provider] - 1-2 days Discharge Disposition: HOME SELF-CARE
[2022-02-08 15:16] VITALS: PULSE 92
== END 2022-02-08 16:22 | disposition home or self-care (01) | DRG 177 ==
LOC: EC 05:46 → 4SSUR 08:16
PROVIDERS: ADMIT Internal Medicine; ATTEND Internal Medicine
DX: U07.1 COVID-19 (principal); J12.82 Pneumonia due to coronavirus disease 2019; J96.01 Acute respiratory failure with hypoxia; J98.11 Atelectasis; Z20.822 Contact with and (suspected) exposure to COVID-19; E11.42 Type 2 diabetes mellitus with diabetic polyneuropathy; I25.10 Atherosclerotic heart disease of native coronary artery without angina pectoris; G47.33 Obstructive sleep apnea (adult) (pediatric); J30.1 Allergic rhinitis due to pollen; E78.5 Hyperlipidemia, unspecified; K21.9 Gastro-esophageal reflux disease without esophagitis; I10 Essential (primary) hypertension; J45.909 Unspecified asthma, uncomplicated; N40.0 Benign prostatic hyperplasia without lower urinary tract symptoms; G25.0 Essential tremor; Z28.310 Unvaccinated for COVID-19; Z79.82 Long term (current) use of aspirin; Z79.84 Long term (current) use of oral hypoglycemic drugs; Z79.899 Other long term (current) drug therapy; Z88.8 Allergy status to other drugs, medicaments and biological substances
CPT/HCPCS: 36415; 71045; 71046; 71275; 80048; 80053; 81003; 82728; 83036; 83605; 83735; 85025; 85379; 86140; 87635; 93005; 93970; 94640; 94760; 96361; 96374; 99285

== ENCOUNTER → 2022-12-17 | Outpatient (CLI) | payer OTHER ==
--- NOTE | 2022-12-23 13:08 | US ---
EXAMINATION TYPE: US arterial LE single level DATE OF EXAM: 12/17/2022 1:46 PM CLINICAL INDICATION: Male, 77 years old with history of I70.219 ATHSCL [place] ARTERIES OF EXTRM W INT RMT EMILY, UNSP; Imbalance, pain bilateral legs for 2-3 years, getting worse. Cold feet History of: Smoker: previous Hypertension: yes Diabetic: yes Hyperlipidemia: yes TIA/CVA: no Previous Vascular Surgery: no TX: no Vascular Ulcers: no Doppler Waveforms: Right: Multiphasic Left: Multiphasic Right Brachial Pressure: 146 Left Brachial Pressure: 137 Ankle-Brachial Indices: Right: 1.20 Left: 1.21 Toe Brachial Indices: Right: 0.99 Left: 0.90 IMPRESSION: 1. Normal LETICIA and TBI indices bilaterally.
== END | disposition home or self-care (01) ==
LOC: RADUSWWP 12:50
PROVIDERS: ATTEND Family Medicine
DX: I70.213 Atherosclerosis of native arteries of extremities with intermittent claudication, bilateral legs (principal)
CPT/HCPCS: 93922

== ENCOUNTER → 2023-05-19 | Outpatient (CLI) | payer OTHER | LOC: CPPFTMAIN 15:59 | DX: J44.9 Chronic obstructive pulmonary disease, unspecified (principal); Z91.09 Other allergy status, other than to drugs and biological substances; Z88.8 Allergy status to other drugs, medicaments and biological substances; Z91.048 Other nonmedicinal substance allergy status; Z79.899 Other long term (current) drug therapy; Z87.891 Personal history of nicotine dependence | CPT/HCPCS: 94060; 94726; 94729 ==

== ENCOUNTER → 2023-12-02 | Outpatient (CLI) | payer OTHER ==
--- NOTE | 2023-12-04 16:36 | FL ---
EXAMINATION TYPE: FL barium swallow DATE OF EXAM: 12/02/2023 COMPARISON: None HISTORY: Dysphasia TECHNIQUE: A double air contrast UGI study is performed. FINDINGS: Fluoroscopy time: 21 seconds DAP: 2728.55 Images: 154 Esophagus dilates to normal caliber and has normal contour to the gastroesophageal junction. Gastroes ophageal junction opens to normal caliber. A small pulsion diverticula may be within the distal esoph jyotsna. There is complete stripping esophageal post horizontal drinking position. IMPRESSION: 1. No acute esophageal abnormality to account for dysphasia. 2. Note is made of a pulsion diverticulum distal esophagus.
== END | disposition home or self-care (01) ==
LOC: RADUSWWP 10:06
PROVIDERS: ATTEND Family Medicine
DX: K57.90 Diverticulosis of intestine, part unspecified, without perforation or abscess without bleeding (principal); R13.10 Dysphagia, unspecified
CPT/HCPCS: 74220

== ENCOUNTER → 2023-12-03 | Outpatient (CLI) | payer OTHER ==
--- NOTE | 2023-12-03 11:06 | MR ---
EXAMINATION TYPE: MR knee LT wo con DATE OF EXAM: 12/03/2023 COMPARISON: Outside left knee x-ray November 23, 2023 HISTORY: LEFT KNEE CENTER PAIN AND LOCKING X2 YEARS TECHNIQUE: Multiplanar, multisequence images of the knee is performed without IV contrast. FINDINGS: MEDIAL MENISCUS: Globular increased signal medial meniscus centered posterior horn likely extends to articular surface. LATERAL MENISCUS: Horizontal increased signal central body does not definitively extend to articular surface seen best on coronal images. CRUCIATE LIGAMENTS: The anterior and posterior cruciate ligaments are intact and unremarkable. COLLATERAL LIGAMENTS: The medial collateral ligament and lateral collateral ligament complex are inta ct. Mild fluid signal surrounds medial collateral ligament. EXTENSOR MECHANISM: Visualized quadriceps and patellar tendons are intact. EFFUSION: No significant suprapatellar joint effusion. POPLITEAL CYST: No popliteal/ulrich cyst. TRICOMPARTMENT SPACES: Mild to moderate lateral compartment joint space loss with mild spurring. CARTILAGE: Tricompartmental articular cartilage is preserved. BONE MARROW SIGNAL: No focal abnormal marrow signal is appreciated. OTHER: No additional significant abnormality is appreciated. IMPRESSION: 1. At least intrasubstance suspected full-thickness tear posterior horn medial meniscus. 2. Mild to moderate tricompartment degenerative changes are seen as detailed above. 3. Perhaps Mild MCL sprain injury. 4. Suspect intrasubstance tear central body of the lateral meniscus.
== END | disposition home or self-care (01) ==
LOC: RADMRIMAIN 08:19
PROVIDERS: ATTEND Orthopaedic Surgery
DX: M17.12 Unilateral primary osteoarthritis, left knee (principal); M23.322 Other meniscus derangements, posterior horn of medial meniscus, left knee

== ENCOUNTER → 2024-08-01 | Outpatient (CLI) | payer OTHER ==
[2024-08-01 15:27] LABS: African American GFR (CKD) >90 (>60 ml/min/1.73 sqM); Blood Urea Nitrogen 9 mg/dL (9-20); Non-African American GFR(CKD) >90 (>60 ml/min/1.73 sqM)
--- NOTE | 2024-08-01 16:00 | CT ---
EXAMINATION TYPE: CT chest w con CT DLP: 646.5 mGycm, Automated exposure control for dose reduction was used. DATE OF EXAM: 08/01/2024 3:50 PM COMPARISON: CTA chest 02/08/2022, CT abdomen and pelvis 11/30/2020 CLINICAL INDICATION:Male, 78 years old with history of J44.9 CHRONIC OBSTRUCTIVE PULMONARY DISEASE, U NSPE; PHH, SOB TECHNIQUE: Multiple axial images were obtained through the chest following the administration of 100 cc of Isovue 300. . Coronal and sagittal reformats reviewed. FINDINGS: LUNGS/ PLEURA: No pleural effusion or pneumothorax. Bibasilar subsegmental atelectasis. Mild centrilo bular emphysematous changes. No suspicious pulmonary nodule or mass. AIRWAY: Patent and unremarkable.. HEART: The heart is mildly increased in size..No pericardial effusion. Small coronary calcifications. MEDIASTINUM: No evidence of adenopathy. VASCULATURE: Aneurysm dilatation of the ascending thoracic aorta measuring up to 4.0 cm. Mild athero sclerotic calcification of the aorta and its branches. Dilated main pulmonary artery measuring up to 3.5 cm. MUSCULOSKELETAL: Mild disc degeneration changes are present throughout the thoracolumbar spine. No ac afognak osseous abnormality. SOFT TISSUES/LYMPH NODES: Unremarkable. LOWER NECK: No significant findings. UPPER ABDOMEN: Right renal 1.9 cm cyst. IMPRESSION: 1. No acute thoracic process. 2. Mild COPD changes with bibasilar subsegmental atelectasis. 3. Ascending thoracic aortic aneurysm measuring up to 4.0 cm. 4. Dilated main pulmonary artery which can be seen with pulmonary arterial hypertension. [facility], , 08/01/2024 3:58 PM
== END | disposition home or self-care (01) ==
LOC: RADCTMAIN 14:46
PROVIDERS: ATTEND Internal Medicine Critical Care Medicine
DX: I71.21 Aneurysm of the ascending aorta, without rupture (principal); J44.9 Chronic obstructive pulmonary disease, unspecified; J98.11 Atelectasis
CPT/HCPCS: 82565; 84520; 71260; 36415; Q9967